=== PATIENT | female | born 1980 | race Hispanic/Latino ===

== ENCOUNTER 2017-08-25 11:02 | Inpatient (IN) | payer MEDICAID, OTHER ==
[~2017-08-25] VITALS: Ht 154.9 cm; Wt 79.4 kg
[2017-08-25] MEDS ORDERED: LACTATED RINGERS 1000ML 1,000 ML IV PRN (11:24)
[2017-08-25] MEDS ORDERED: AMPICILLIN 2GM+NS 100ML 100 ML IV SCH (11:30)
[2017-08-25] MEDS ORDERED: LACTATED RINGERS 1000ML 1,000 ML IV ONE ×2 (11:38→15:41)
[2017-08-25] MEDS ORDERED: OXYTOCIN 10 USP UNITS/ML ONE ×2 (11:39→15:41)
[2017-08-25] MEDS: OXYTOCIN 10 USP UNITS/ML 20 UNIT in LACTATED RINGERS 1000ML 1,000 ML IV SCH (12:02)
[2017-08-25 12:10] LABS: HEMATOCRIT 36.9 % (36-48); MEAN CORPUSCULAR HEMOGLOBIN 30.5 pg (27.0-33.0); MEAN CORPUSCULAR HGB CONC 34.3 g/dL (32.0-36.0); MEAN CORPUSCULAR VOLUME 88.8 fL (79-99); NUCLEATED RED BLOOD CELLS 0.1 % (0.0-0.19); PLATELET COUNT (AUTO) 189 K/uL (130-400); RED BLOOD CELL COUNT(AUTO) 4.16 MIL/uL (4.00-5.50); RED CELL DISTRIBUTION WIDTH 13.9 % (11.0-15.5); WHITE BLOOD COUNT (AUTO) 7.9 K/uL (4.8-10.8)
[2017-08-25] MEDS ORDERED: PROMETHAZINE HCL 25 MG/ML 1ML AMPULE IM SCH (15:30)
[2017-08-25] MEDS ORDERED: MEPERIDINE-PF 50 MG/ML SYG IVP SCH (15:30)
[2017-08-25] MEDS ORDERED: PROMETHAZINE HCL 25 MG/ML 1ML AMPULE IM ONE (15:44)
[2017-08-25] MEDS ORDERED: MEPERIDINE-PF 50 MG/ML SYG ONE (15:45)
[2017-08-25] MEDS ORDERED: LANOLIN 30GM OINTMENT TP PRN (17:00)
[2017-08-25] MEDS ORDERED: OXYTOCIN-LR 20 UNITS/1000 ML 1,000 ML IV SCH (17:00)
[2017-08-25] MEDS ORDERED: ACETAMINOPHEN 325 MG TAB PO PRN (17:00)
[2017-08-25] MEDS ORDERED: MEASLES/MUMPS/RUBELLA VACCINE, LIVE 0.5 ML/VIAL SQ PRN (17:00)
[2017-08-25] MEDS ORDERED: WITCH HAZEL 1 PAD TP PRN (17:00)
[2017-08-25] MEDS ORDERED: BENZOCAINE/LANOLIN/ALOE VERA 60 ML AEROSOL TP PRN (17:00)
[2017-08-25] MEDS ORDERED: DIPH,PERTUSS(ACELL),TET VAC/PF 0.5 ML VIAL IM PRN (17:00)
[2017-08-25 17:18] VITALS: BP 111/71
[2017-08-25 17:46] VITALS: BP 97/58
[2017-08-25] MEDS: IBUPROFEN 600 MG TABLET PO PRN (18:43)
[2017-08-25 19:17] VITALS: BP 118/76
[2017-08-25] MEDS: AMPICILLIN 1GM+NS 50ML 50 ML IV SCH ×2 (19:30→23:30)
[2017-08-25] MEDS: DOCUSATE SODIUM 100 MG CAP PO SCH (21:04)
[2017-08-25 23:29] VITALS: BP 99/62
[2017-08-26] MEDS: IBUPROFEN 600 MG TABLET PO PRN ×3 (02:17→18:29)
[2017-08-26 03:08] VITALS: BP 99/64
[2017-08-26] MEDS: AMPICILLIN 1GM+NS 50ML 50 ML IV SCH ×5 (03:30→23:30)
[2017-08-26 05:10] LABS: HEMATOCRIT 35.5 % (36-48); MEAN CORPUSCULAR HEMOGLOBIN 31.2 pg (27.0-33.0); MEAN CORPUSCULAR HGB CONC 34.8 g/dL (32.0-36.0); MEAN CORPUSCULAR VOLUME 89.8 fL (79-99); PLATELET COUNT (AUTO) 175 K/uL (130-400); RED BLOOD CELL COUNT(AUTO) 3.95 MIL/uL (4.00-5.50); RED CELL DISTRIBUTION WIDTH 13.8 % (11.0-15.5); WHITE BLOOD COUNT (AUTO) 9.7 K/uL (4.8-10.8)
[2017-08-26 07:17] VITALS: BP 110/72
[2017-08-26 08:21] LABS: HEPATITIS Bs ANTIGEN SCREEN P Negative (Negative)
[2017-08-26] MEDS: DOCUSATE SODIUM 100 MG CAP PO SCH ×2 (09:51→20:49)
[2017-08-26 11:12] VITALS: BP 104/50
[2017-08-26 15:31] VITALS: BP 104/50
[2017-08-26 19:18] VITALS: BP 96/64
[2017-08-26 23:29] VITALS: BP 108/66
[2017-08-27] MEDS: AMPICILLIN 1GM+NS 50ML 50 ML IV SCH (00:28)
[2017-08-27 03:13] VITALS: BP 103/62
[2017-08-27 07:28] VITALS: BP 99/65
[2017-08-27] MEDS: IBUPROFEN 600 MG TABLET PO PRN (09:10)
[2017-08-27] MEDS: DOCUSATE SODIUM 100 MG CAP PO SCH (09:10)
[2017-08-27] MEDS: OXYTOCIN 10 USP UNITS/ML 20 UNIT in LACTATED RINGERS 1000ML 1,000 ML IV SCH (10:29)
[2017-08-27 11:18] VITALS: BP 93/50
== END 2017-08-27 13:25 | disposition home or self-care (01) | DRG 775 ==
LOC: EDH 11:02 → OBSVTOIN 11:03 → LDH 11:03 → WSH 17:05
PROVIDERS: ADMIT Obstetrics & Gynecology; ATTEND Obstetrics & Gynecology
PROC: 0HQ9XZZ Repair Perineum Skin, External Approach (ICD-10-PCS; principal; 2017-08-25)
PROC: 10E0XZZ Delivery of Products of Conception, External Approach (ICD-10-PCS; 2017-08-25)
PROC: 10907ZC Drainage of Amniotic Fluid, Therapeutic from Products of Conception, Via Natural or Artificial Opening (ICD-10-PCS; 2017-08-25)
PROC: 3E0234Z Introduction of Serum, Toxoid and Vaccine into Muscle, Percutaneous Approach (ICD-10-PCS; 2017-08-25)
PROC: 3E0134Z Introduction of Serum, Toxoid and Vaccine into Subcutaneous Tissue, Percutaneous Approach (ICD-10-PCS; 2017-08-25)
DX: O99.824 Streptococcus B carrier state complicating childbirth (principal); Z23 Encounter for immunization; O70.0 First degree perineal laceration during delivery; Z37.0 Single live birth; Z3A.39 39 weeks gestation of pregnancy
CPT/HCPCS: 36415; 85027; 86592; 86850; 86900; 86901; 87340; A4351; J0290; J2175; J2550; J2590; J7120

== ENCOUNTER 2017-09-02 20:11 | Emergency (ER) | payer MEDICAID, OTHER ==
[2017-09-02 21:11] LABS: BASOPHILS % (AUTO) 0.5 % (0.0-5.0); EOSINOPHILS % (AUTO) 1.2 % (0.0-8.0); HEMATOCRIT 40.3 % (36-48); LYMPHOCYTES % (AUTO) 13.5 % (21.0-51.0); MEAN CORPUSCULAR HEMOGLOBIN 30.3 pg (27.0-33.0); MEAN CORPUSCULAR HGB CONC 33.6 g/dL (32.0-36.0); MEAN CORPUSCULAR VOLUME 90.1 fL (79-99); MONOCYTES % (AUTO) 7.1 % (3.0-13.0); NEUTROPHILS % (AUTO) 77.7 % (40.0-77.0); PLATELET COUNT (AUTO) 209 K/uL (130-400); RED BLOOD CELL COUNT(AUTO) 4.47 MIL/uL (4.00-5.50); RED CELL DISTRIBUTION WIDTH 13.9 % (11.0-15.5); WHITE BLOOD COUNT (AUTO) 11.3 K/uL (4.8-10.8)
[2017-09-02 21:20] LABS: CREATININE 0.8 mg/dL (0.5-1.5); POTASSIUM 3.4 mmol/L (3.5-5.1)
[2017-09-02 21:25] LABS: ALBUMIN 2.6 g/dL (3.5-5.0); BILIRUBIN,TOTAL 0.3 mg/dL (0.2-1.0); TOTAL PROTEIN, SERUM 6.7 g/dL (6.0-8.3)
[2017-09-02 21:26] LABS: INR 0.96 (0.85-1.15); PARTIAL THROMBOPLASTIN TIME 24.8 SEC (26.3-35.5); PROTHROMBIN TIME 9.9 SEC (9.6-11.6)
== END 2017-09-02 22:29 | disposition home or self-care (01) ==
LOC: EDH 20:11
DX: O72.1 Other immediate postpartum hemorrhage (principal)
CPT/HCPCS: 36415; 76856; 80053; 85025; 85610; 85730; 88304